=== PATIENT | male | born 1995 | race Hispanic/Latino ===

== ENCOUNTER 2023-10-21 10:02 | Emergency (ER) | payer OTHER, SELFPAY ==
[2023-10-21 10:19] VITALS: BP 156/91; PULSE 78; RESP 16; TEMP 37.3; O2SAT 100
--- NOTE | 2023-10-21 10:25 | ED.URI ---
HPI - URI/Sore Throat General Chief Complaint: Upper Respiratory Infection Stated Complaint: COVID + home test 10/20/2022,work note Time Seen by Provider: 10/21/23 10:27 Source: patient Mode of arrival: ambulatory Limitations: no limitations History of Present Illness HPI Narrative: 28-year-old male presents with complaint of nasal congestion, sore throat, cough, fatigue, chills for 3 days. Reports fever on 1st day but now resolved. Taking [id number] DayQuil NyQuil cold and flu to treat symptoms. Reports tested positive for COVID, here for work note. No chest pain or shortness breath. All systems reviewed and negative except as noted above. Related Data Home Medications Medication Instructions Recorded Confirmed No Home Medications 10/21/23 10/21/23 Allergies Allergy/AdvReac Type Severity Reaction Status Date / Time No Known Allergies Allergy Verified 10/21/23 10:22 Review of Systems Review of Systems: CONSTITUTIONAL: Denies fever, , fatigue,chills. Denies sweats. EYES: Denies visual changes, redness, or discharge. ENT: Reports rhinorrhea, congestion, sore throat, or otalgia. CARDIOVASCULAR: Denies chest pain, palpitations, or edema. RESPIRATORY: reports cough. Denies dyspnea. GASTROINTESTINAL: Denies abdominal pain, nausea, vomiting, or diarrhea. GENITOURINARY: Denies dysuria or hematuria. SKIN: Denies rash or itching. MUSCULOSKELETAL: Denies back pain, joint pain, or myalgia. NEUROLOGIC: Denies headache, numbness, or weakness. PSYCHIATRIC: Denies anxiety or depression. All other systems reviewed are negative, except as documented in HPI. PMFSH Comments At time of signature, agree with nursing past medical, surgical, social and family history. There is no relevant family history pertinent to the presenting complaint. Exam Narrative: GENERAL: This is a well-nourished, well-developed patient, ill-appearing but in no acute distress. HEAD: normocephalic, atraumatic. EYES: PERRL. Sclera clear/white. Vision is grossly intact. EARS: External ears normal, auditory canals clear and without drainage, TMs normal without perforation. Hearing grossly intact. NOSE: External nose normal with Clear nasal drainage, erythema to bilateral nares. THROAT: Mucous membranes moist, posterior pharynx clear. NECK: Neck supple, non-tender without lymphadenopathy, masses or thyromegaly. CARDIOVASCULAR: Regular rate and rhythm without murmurs, gallops, or rubs. RESPIRATORY: Clear to auscultation. Breath sounds equal bilaterally. No wheezes, rales, or rhonchi. SKIN: warm, Dry, intact with no suspicious lesions or rash, good texture and turgor. NEURO: awake, alert, and oriented to person, place and time. There were no obvious focal neurologic abnormalities. EXTREMITIES: No joint tenderness, effusion, or edema noted. Course Course Level of Care: Express Care Visit Vital Signs Vital signs: Vital Signs Temperature 37.3 C 10/21/23 10:19 Pulse Rate 78 10/21/23 10:19 Respiratory Rate 16 10/21/23 10:19 Blood Pressure 156/91 H 10/21/23 10:19 Pulse Oximetry 100 10/21/23 10:19 Oxygen Delivery Room Air 10/21/23 10:19 Temperature 37.3 C 10/21/23 10:19 Pulse Rate 78 10/21/23 10:19 Respiratory Rate 16 10/21/23 10:19 Blood Pressure 156/91 H 10/21/23 10:19 Pulse Oximetry 100 10/21/23 10:19 Oxygen Delivery Room Air 10/21/23 10:19 Reviewed MDM - URI/Sore Throat MDM Narrative Medical decision making narrative: Patient is aware of diagnosis, understands and agrees to treatment plan. Anticipatory guidance given. Patient agrees to follow-up as directed and is aware of reasons to seek care at the emergency department. Portions of this record may have been created with voice recognition software Differential Diagnosis Differential diagnosis: Likely other ( COVID-19) Discharge Plan Discharge Clinical Impression: COVID-19 Patient Disposition: Home, Self-Care
== END 2023-10-21 10:38 | disposition home or self-care (01) ==
PROVIDERS: Emergency Provider Nurse Practitioner Family
DX: U07.1 COVID-19 (principal); Z85.528 Personal history of other malignant neoplasm of kidney; Z90.5 Acquired absence of kidney
CPT/HCPCS: 87426; 99203; G0463

== ENCOUNTER 2023-12-08 10:29 | Emergency (ER) | payer OTHER, SELFPAY ==
[2023-12-08 10:44] VITALS: BP 131/76; PULSE 67; RESP 16; TEMP 36.5; O2SAT 99
--- NOTE | 2023-12-08 11:41 | ED.GENADULT ---
HPI - General Adult General Chief complaint: Extremity Injury, Upper Stated complaint: pain in R shoulder Time Seen by Provider: 12/08/23 11:37 Source: patient, RN notes reviewed and old records reviewed Mode of arrival: ambulatory Limitations: no limitations History of Present Illness HPI narrative: 28-year-old male presents to [facility] with complaint of right shoulder pain with limited range of motion since yesterday. Patient endorses that he has a very physically demanding job. The patient denies any known injury. Patient has attempted to treat at home with rest and Tylenol with some improvement. Patient denies any radiation of pain into to chest neck, or spine. Related Data Home Medications Medication Instructions Recorded Confirmed No Home Medications 10/21/23 12/08/23 Allergies Allergy/AdvReac Type Severity Reaction Status Date / Time No Known Allergies Allergy Verified 12/08/23 10:35 Review of Systems Review of Systems: All systems reviewed & are unremarkable except as noted in HPI and below Constitutional: Constitutional: Reports no additional constitutional complaints Eyes: Eyes: Reports no additional eye complaints ENT: Reports system reviewed and no additional complaints, except as documented Cardiovascular: Cardiovascular: Reports no additional cardiovascular complaints, Denies chest pain and Denies dyspnea Respiratory: Respiratory: Reports no additional respiratory complaints, Denies cough and Denies dyspnea Musculoskeletal: Musculoskeletal: Reports as per HPI, Denies back pain, Reports arthralgias (right shoulder), Reports limited range of motion, Denies neck pain, Denies numbness, Denies radiating pain into limb and Reports stiffness Neurologic: Reports system reviewed and no additional complaints, except as documented Psychiatric: Psychiatric: Reports no additional psychiatric complaints PMFSH Comments At the time of my signature, I reviewed and agree with the nursing past medical, surgical, social, and family history. There is no relevant family history pertinent to the patient complaint. Exam Const: General: cooperative, healthy appearing, comfortable, no acute distress, alert and well nourished Nutritional Appearance: well nourished Orientation/consciousness: patient oriented x3 Limitations: no limitations HENMT: Head: normal to inspection Ears: external ears normal Face/Nose/Sinus: Normal external nose present, Normal nares present, normal facial exam, No erythema and No edema Face and sinus: normal facial exam, no erythema and no edema Mouth: Yes Normal oral and palatal mucosa present Eyes: General: appearance normal, both eyes and all related structures Neck: Neck: normal visual inspection, full ROM and no meningeal signs Lymphatic: no lymphadenopathy noted and no lymphedema noted Chest: Chest palpation & inspection: normal inspection of the chest Resp: Effort & Inspection: normal respiratory effort and able to speak in complete sentences Auscultation: clear to auscultation bilaterally Cardio: Jugular venous distension: no JVD Rate: regular rate Rhythm: regular rhythm Peripheral pulses: Peripheral pulses 2+ throughout Back/Spine/Pelvis: Cervical Spine: cervical ROM normal, No cervical muscular tenderness and No Cervical spine tenderness Skin: General skin exam: normal color, no rashes or lesions noted and turgor normal Neuro: General: patient oriented x3, gait normal, moves all extremities and no meningeal signs Speech: normal speech Gait exam (Neuro): Normal gait present Extrem: General: capillary refill normal and normal exam except as noted Right upper extremity: normal capillary refill and shoulder/upper arm tenderness and abnormal ROM pain with active ROM; no crepitus and no deformity; abnormal to inspection, ROM limited, no cyanosis, no edema and joint enlargement noted Psych: Appearance: grossly normal and well kempt Course Course Emergency Course:
== END 2023-12-08 12:01 | disposition home or self-care (01) ==
PROVIDERS: Emergency Provider Nurse Practitioner Family
DX: M25.511 Pain in right shoulder (principal); Z85.528 Personal history of other malignant neoplasm of kidney; Z90.5 Acquired absence of kidney
CPT/HCPCS: 99212; G0463

== ENCOUNTER 2023-12-17 08:26 | Emergency (ER) | payer OTHER, SELFPAY ==
[2023-12-17 08:30] VITALS: BP 171/95; PULSE 104; RESP 16; TEMP 36.9; O2SAT 99
--- NOTE | 2023-12-17 08:57 | ED.NAVMDI ---
HPI - Nausea/Vomiting/Diarrhea General Chief complaint: Nausea/Vomiting/Diarrhea Stated complaint: fever, N/V Time Seen by Provider: 12/17/23 08:56 Source: patient Mode of arrival: ambulatory Limitations: no limitations History of Present Illness HPI Narrative: Priyank is a 28-year-old male patient presenting to the ER today with complaints fever, nausea, vomiting, and abdominal discomfort. He reports he had approximately 8-9 episodes of vomiting since yesterday and to him numerous to count diarrhea episodes. Is having some abdominal cramping to the mid abdomen. States his fever was as high as 101. He denies any URI symptoms. Related Data Allergies Allergy/AdvReac Type Severity Reaction Status Date / Time No Known Allergies Allergy Verified 12/17/23 09:33 Review of Systems Review of Systems: Pertinent positives per HPI. Patient denies any fever, chills, rash, headache, visual changes, dizziness, cough, runny nose, sore throat, shortness of breath, chest pain, palpitations, constipation, or any urinary issues. PMFSH Comments At the time of my signature, I reviewed and agree with the nursing past medical, surgical, social, and family history. There is no relevant family history pertinent to the patient complaint. Exam Narrative: General: Well-developed, well nourished, in no apparent distress Head: Normocephalic, atraumatic Eyes: Pupils equally round and reactive to light bilaterally, EOM intact, sclera and conjunctive clear, no discharge, lids normal Ears: TMs intact and clear, ear canals clear, no drainage, grossly hearing normal. Nose: Nares patent, no discharge, no inflammation, no sinus tenderness. Mouth: Oropharynx without lesions or masses, good dentition, MMM. Neck: Supple, trachea midline, no enlargement of anterior or posterior cervical nodes, no thyroid masses or goiter palpable. Cardio: Regular rate and rhythm, s1 and s2 normal, no murmur appreciated. Resp: Clear to auscultation bilaterally anteriorly and posteriorly, no rhonchi, rales, wheezing or rubs Abdomen: Soft, pliable, bowel sounds present all 4 quadrants, nondistended, no organomegaly, tenderness to palpation over the mid abdomen, no CVAT tenderness Course Course Emergency Course: Portions of this record may have been created with voice recognition software. Vital Signs Vital signs: Vital Signs Temperature 36.9 C 12/17/23 08:30 Pulse Rate 104 H 12/17/23 08:30 Respiratory Rate 16 12/17/23 08:30 Blood Pressure 171/95 H 12/17/23 08:30 Pulse Oximetry 99 12/17/23 08:30 Oxygen Delivery Room Air 12/17/23 08:30 Temperature 36.9 C 12/17/23 08:30 Pulse Rate 104 H 12/17/23 08:30 Respiratory Rate 16 12/17/23 08:30 Blood Pressure 171/95 H 12/17/23 08:30 Pulse Oximetry 99 12/17/23 08:30 Oxygen Delivery Room Air 12/17/23 08:30 Vital signs reviewed MDM - Nausea/Vomiting/Diarrhea MDM Narrative Medical decision making narrative: At the time of visit patient is resting comfortably on the exam table. Patient appears to be nontoxic. Labs: CBC shows white blood cell count of 9.7, H and H is 16.5 and 50.1, platelet count is a 169, chemistry shows sodium level 138, potassium of 3.4, chloride 105, carbon dioxide of 20, BUN is 16, creatinine 0.9, GFR greater than 60, glucose is 118, lipase is 45, liver function test within normal limits. Urinalysis shows dark yellow with clear urine with a specific gravity 1.039, 2+ protein, trace ketones, 2+ bili. COVID, influenza, and RSV are negative. Medications given: 1 L of normal saline and 4 mg of Zofran Plan: Patient reports his symptoms have improved after Zofran and 1 L of normal saline. I suspect patient has gastroenteritis. Prescription for Zofran was sent to the pharmacy. Work note was given. Supportive measures were discussed with the patient and they voiced understanding discharge instructions and agrees to treatment plan. Return precautions reviewed
[2023-12-17] MEDS: SODIUM CHLORIDE 0.9% IV 1,000 ML 999 ML IV CONT (09:38)
[2023-12-17] MEDS: ONDANSETRON INJ 4 MG/2 ML VIAL IV PUSH (09:38)
[2023-12-17 09:45] LABS: Basophils Percent Auto 0.4 % (0.2-1.2); Eosinophils Absolute Auto 0.1 K/mm3 (0-0.3); Eosinophils Percent Auto 0.5 % (0-4.4); Hematocrit 50.1 % (42.0-52.0); Hemoglobin 16.5 g/dL (14.0-18.0); Immature Granulocyte Absolute 0.05 K/mm3 (0.00-0.031); Immature Granulocyte Percent A 0.5 % (0-0.5); Lymphocytes Absolute Auto 1.63 K/mm3 (0.9-3.2); Lymphocytes Percent Auto 16.8 % (18.3-44.2); Mean Corpuscular HGB Conc 32.9 g/dl (32-36); Mean Corpuscular Hemoglobin 28.8 pg (26-34); Mean Corpuscular Volume 87.6 fl (80-100); Mean Platelet Volume 10.4 fl (7.4-10.4); Monocytes Absolute Auto 1.3 K/mm3 (0.1-0.6); Monocytes Percent Auto 13.1 % (2.6-8.5); Neutrophils Absolute Auto 6.7 K/mm3 (1.3-6.7); Neutrophils Percent Auto 68.7 % (45.5-73.1); Platelet Count Result 169 k/mm3 (150-375); Red Blood Count 5.72 M/mm3 (4.6-6.20); Red Cell Distribution Width 13.6 % (11.5-14.5); White Blood Count 9.7 K/mm3 (4.5-10.0)
[2023-12-17 09:56] LABS: Alanine Aminotransferase 34 U/L (6-50); Albumin Level 4.9 g/dL (3.5-5.1); Alkaline Phosphatase 77 U/L (38-126); Anion Gap 13 mmol/L (8-16); Aspartate Amino Transferase 35 U/L (17-59); Bilirubin,Total 0.5 mg/dL (0.2-1.3); Blood Urea Nitrogen 16 mg/dL (9-20); Calcium 9.4 mg/dL (8.4-10.2); Carbon Dioxide 20 mmol/L (22-30); Chloride 105 mmol/L (98-107); Estimated CRCL calculation 146 ml/min; Estimated Glomerular Filt Rate > 60; Glucose 118 mg/dL (65-110); Lipase 45 U/L (23-300); Potassium 3.4 mmol/L (3.4-5.0); Sodium 138 mmol/L (137-145)
[2023-12-17 09:58] LABS: Appearance Urine Clear (Clear); Bacteria Urine None Seen /hpf; Bilirubin Urine 2+ (Negative); Blood Urine Negative (Negative); Color Urine Dark Yellow (Yellow); Glucose Urine UA Negative (Negative); Ketones Urine Trace mg/dL (Negative); Leukocyte Esterase Ur Negative LEU/UL (Negative); Mucus Urine Present /lpf; Nitrate Urine Negative (Negative); Non Pathogenic Casts >20; Protein Urine 2+ mg/dL (Negative); RBC Urine 0-2 /hpf (0-2); Squamous Epithelial Cell Urine Moderate /hpf (Few); WBC Urine 0-5 /hpf (0-3); White Blood Cell Casts Urine Present /lpf
[2023-12-17 09:59] LABS: Add Urine Microscopic? YES; Specific Grav Ur 1.039 (1.001-1.035)
[2023-12-17 10:26] LABS: Influenza A QL RT-PCR Negative (Negative); Influenza B QL RT-PCR Negative (Negative); RSV RNA, RT-PCR Negative (Negative); SARS-CoV-2 RNA PCR Negative (Negative)
[2023-12-17 11:25] VITALS: BP 152/84; PULSE 88; RESP 18; TEMP 36.6; O2SAT 99
== END 2023-12-17 11:26 | disposition home or self-care (01) ==
PROVIDERS: Emergency Medicine; Emergency Provider Nurse Practitioner Family
DX: K52.9 Noninfective gastroenteritis and colitis, unspecified (principal); Z20.822 Contact with and (suspected) exposure to COVID-19
CPT/HCPCS: 36415; 80053; 83690; 85025; 87637; 96361; 96374; 99284; J2405; J7030

== ENCOUNTER 2024-07-09 18:06 | Emergency (ER) | payer OTHER, SELFPAY ==
[2024-07-09 18:16] VITALS: BP 146/98; PULSE 89; RESP 16; TEMP 37.1; O2SAT 99
--- NOTE | 2024-07-09 18:25 | ED.LOWEXIN ---
HPI - Extremity Injury (Lower) General Chief Complaint: Extremity Injury, Lower Stated Complaint: left big toe injury Time Seen by Provider: 07/09/24 18:25 Source: patient, RN notes reviewed and old records reviewed Mode of arrival: ambulatory Limitations: no limitations History of Present Illness HPI Narrative: Patient presents with complaints of left great toe pain. He reports that just prior to arrival a piece of metal partially avulsed the toenail, then another piece of metal hit him and put the toenail back into place. He denies other injury and trauma. Voices no other concerns or complaints at this time. The toenail appears intact. He has not taken anything for pain Related Data Home Medications Medication Instructions Recorded Confirmed No Home Medications 07/09/24 07/09/24 Allergies Allergy/AdvReac Type Severity Reaction Status Date / Time No Known Allergies Allergy Verified 12/17/23 09:33 Review of Systems Review of Systems: All systems reviewed & are unremarkable except as noted in HPI and below Constitutional: Constitutional: Reports no additional constitutional complaints ENT: Reports system reviewed and no additional complaints, except as documented Cardiovascular: Cardiovascular: Reports no additional cardiovascular complaints Respiratory: Respiratory: Reports no additional respiratory complaints Gastrointestinal: Gastrointestinal: Reports no additional gastrointestinal complaints Musculoskeletal: Musculoskeletal: Reports no additional musculoskeletal complaints and Reports other (Left great toe pain) PMFSH Comments At the time of my signature, I reviewed and agree with the nursing past medical, surgical, social, and family history. There is no relevant family history pertinent to the patient complaint. Exam Const: General: cooperative, no acute distress, alert and awake Orientation/consciousness: oriented to person, oriented to place and oriented to time HENMT: Head: normal to inspection Resp: Effort & Inspection: normal respiratory effort and able to speak in complete sentences Auscultation: clear to auscultation bilaterally, no crackles, no rales, no rhonchi and no wheezes Cardio: Palpation: normal PMI Rate: regular rate Rhythm: regular rhythm Heart sounds: S1 normal heart sound present and S2 normal heart sound present Neuro: General: oriented to person, oriented to place and oriented to time Cranial nerves: Yes CN's II-XII intact bilaterally Extrem: Left lower extremity: foot Details: tenderness (Nailbed left great toe) Psych: Appearance: grossly normal Thought process: Normal thought process present Insight: Good insight present (Psych) Judgement: Good judgement present (Psych) Course Course Level of Care: Express Care Visit Vital Signs Vital signs: Vital Signs Temperature 98.7 F 07/09/24 18:16 Pulse Rate 89 07/09/24 18:16 Respiratory Rate 16 07/09/24 18:16 Blood Pressure 146/98 H 07/09/24 18:16 Pulse Oximetry 99 07/09/24 18:16 Oxygen Delivery Room Air 07/09/24 18:16 Temperature 98.7 F 07/09/24 18:16 Pulse Rate 89 07/09/24 18:16 Respiratory Rate 16 07/09/24 18:16 Blood Pressure 146/98 H 07/09/24 18:16 Pulse Oximetry 99 07/09/24 18:16 Oxygen Delivery Room Air 07/09/24 18:16 Reviewed MDM - Extremity Injury (Lower) MDM Narrative Medical decision making narrative: Left great toe tender, no deformity. No other injuries. Patient advised to take Tylenol and/or ibuprofen per package instructions as needed for pain. RICE therapy. Elevated blood pressure noted, patient advised to discuss with primary care provider. Emergency department for new or worse symptoms. Discharge instructions reviewed with patient, as well as provided in writing per nursing staff. The instructions also include specific and strict return/GO TO THE ER as well as f/u information. All questions have been answered, and the patient deny any furth
== END 2024-07-09 18:39 | disposition home or self-care (01) ==
PROVIDERS: Emergency Provider Nurse Practitioner Family
DX: M79.675 Pain in left toe(s) (principal); R03.0 Elevated blood-pressure reading, without diagnosis of hypertension
CPT/HCPCS: 99212; G0463

== ENCOUNTER 2025-01-15 12:22 | Emergency (ER) | payer OTHER, SELFPAY ==
--- NOTE | 2025-01-15 12:23 | ED.RECABL ---
HPI - Recheck/Abnormal Lab/Rx General Chief Complaint: Unspecified Stated Complaint: work note Time Seen by Provider: 01/15/25 12:22 Source: patient Mode of arrival: ambulatory Limitations: no limitations History of Present Illness HPI narrative: Priyank is a 29-year-old male patient presenting to the clinic today requesting a work note. He reports he tested positive for COVID last week and retested today was negative. States he still has a cough but no other symptoms. Is needing a work note to return to work. Denies any other concerns. Blood pressure was elevated in the clinic. He does take anti hypertension medications. Related Data Home Medications ?Medication ?Instructions ?Recorded ?Confirmed ?Last Taken ?Type No Home Medications 07/09/24 01/15/25 Unknown History Allergies Allergy/AdvReac Type Severity Reaction Status Date / Time No Known Allergies Allergy Verified 01/15/25 12:23 Review of Systems Review of Systems: Pertinent positives per HPI. Patient denies any fever, chills, rash, headache, visual changes, dizziness, cough, runny nose, sore throat, shortness of breath, chest pain, palpitations, nausea, vomiting, diarrhea, constipation, abdominal pain, or any urinary issues. PMFSH Comments At the time of my signature, I reviewed and agree with the nursing past medical, surgical, social, and family history. There is no relevant family history pertinent to the patient complaint. Exam Narrative: General: Well-developed, obese, in no apparent distress Head: Normocephalic, atraumatic Eyes: Pupils equally round and reactive to light bilaterally, EOM intact, sclera and conjunctive clear, no discharge, lids normal Ears: TMs intact and clear, ear canals clear, no drainage, grossly hearing normal. Nose: Nares patent, no discharge, no inflammation, no sinus tenderness. Mouth: Oropharynx without lesions or masses, good dentition, MMM. Neck: Supple, trachea midline, no enlargement of anterior or posterior cervical nodes, no thyroid masses or goiter palpable. Cardio: Regular rate and rhythm, s1 and s2 normal, no murmur appreciated. Resp: Clear to auscultation bilaterally anteriorly and posteriorly, no rhonchi, rales, wheezing or rubs Course Course Emergency Course: Portions of this record may have been created with voice recognition software. Level of Care: Express Care Visit Vital Signs Vital signs: Vital Signs Temperature 37.0 C 01/15/25 12:28 Pulse Rate 92 01/15/25 12:28 Respiratory Rate 20 01/15/25 12:28 Blood Pressure 173/104 H 01/15/25 12:28 Pulse Oximetry 99 01/15/25 12:28 Oxygen Delivery Room Air 01/15/25 12:28 Temperature 37.0 C 01/15/25 12:28 Pulse Rate 92 01/15/25 12:28 Respiratory Rate 20 01/15/25 12:28 Blood Pressure 173/104 H 01/15/25 12:28 Pulse Oximetry 99 01/15/25 12:28 Oxygen Delivery Room Air 01/15/25 12:28 Vital signs reviewed MDM - Recheck/Abnormal Lab/Rx MDM Narrative Medical decision making narrative: At the time of visit patient is resting comfortably on the exam table. Patient appears to be nontoxic. Plan: I suspect patient has post viral cough syndrome. Patient also has hypertension. Will give work note to return tomorrow. Supportive measures were discussed with the patient and they voiced understanding discharge instructions and agrees to treatment plan. Return precautions reviewed Differential Diagnosis Differential diagnosis: Likely other (Post viral cough, encounter for well check, hypertension) Discharge Plan Discharge Clinical Impression: Post-viral cough syndrome Hypertension Qualifiers: Hypertension type: unspecified Qualified Code(s): I10 - Essential (primary) hypertension Patient Disposition: Home Condition: Stable Instructions: Antibiotic Form, Acute Cough (ED), Chronic Hypertension (ED) Additional Instructions: May return to work on January 16 2025 Take prescription medications only as prescribed Increase fluids and stay well hydrated Tylenol/motrin for pain/fever Flonase and OTC antihistamines as directed Vicks vapor rub to open sinuses Sinus rinses for congestion Cepacol spray, cough drops, throat lozenges, warm tea with honey/lemon, gargle salt water to soothe throat BRAT diet for diarrhea Clear liquids x 24 hours then advance as tolerated for nausea/vomiting Go to the ED if you develop a worsening in your condition- high fever not controlled by Tylenol or Motrin, dehydration, weakness, lethargy, shortness of breath, or chest pain. Follow up with your PCP in 3-5 days if symptoms persist. You have an elevated blood pressure in the clinic today and I recommend follow-up with primary care physician to have this reevaluated within the next week if symptoms persist. [place] [employer] guidelines state that normal blood pressure is 120/80 or less. Anything over 120/80 is considered elevated and should be monitored. You may need to decrease you salt intake and eat a heart healthy diet to help lower you blood pressure, other treatments would include decreasing stress, weight loss, stop caffeine, and quit smoking. Your primary care provider can determine whether you need to start antihypertensive medications. Untreated high blood pressure can cause dizziness, headaches, visual changes, blindness, kidney failure, stroke, heart attack, and male impotence. Patient Language: Mohawk Prescriptions: No Action No Home Medications Follow-up/Referrals: PHYSICIAN NOT ON STAFF,NONSTAFF [Primary Care Provider] - Stand Alone Forms: Work/School Release IP Time of Disposition: 12:34 Quality NIHSS Nursing Documentation ED NIHSS nursing documentation: reviewed/agree
[2025-01-15 12:28] VITALS: BP 173/104; PULSE 92; RESP 20; TEMP 37; O2SAT 99
== END 2025-01-15 12:40 | disposition home or self-care (01) ==
LOC: EXPCOLL 12:26
PROVIDERS: Emergency Provider Nurse Practitioner Family
DX: R05.8 Other specified cough (principal); I10 Essential (primary) hypertension
CPT/HCPCS: 99211; G0463

== ENCOUNTER 2025-03-01 13:14 | Emergency (ER) | payer OTHER, SELFPAY ==
--- NOTE | ~2025-03-01 | XR_ITS ---
XR shoulder RT min 2V 03/01/2025 13:42 INDICATION: Right shoulder pain PROCEDURE: 4 views right shoulder COMPARISON: No prior studies for comparison. FINDINGS: Fracture, dislocation or subluxation is not identified. No prior studies for comparison. Th e soft tissues appear within normal limits. No foreign bodies are identified. IMPRESSION: 1: NO ACUTE BONE OR JOINT ABNORMALITY IDENTIFIED. Reviewed, dictated and finalized at location A.
--- NOTE | 2025-03-01 13:16 | ED_ITS ---
HPI - Extremity Injury (Upper) General Chief Complaint: Extremity Injury, Upper Stated Complaint: right shoulder pain Time Seen by Provider: 03/01/25 13:16 Source: patient Mode of arrival: ambulatory Limitations: no limitations History of Present Illness HPI narrative: Barber is a 29-year-old male patient presenting to the clinic today with complaints of chronic right shoulder pain x2 years. He reports he initially injured his right shoulder 2 years ago while at work. 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 Was seen 2 years ago for this and he was diagnosed with a possible muscle tear per patient. Is reporting pain to the anterior and lateral shoulder. States the pain worsened yesterday but has been pretty bad over the last week. Is unable to push the score boards with his right arm due to pain. Feels as though his shoulder may be swollen. Pain with raising is arm above his head. Has been taking ibuprofen without relief. Related Data Home Medications ?Medication ?Instructions ?Recorded ?Confirmed ?Last Taken ?Type hydrochlorothiazide 25 mg tablet mg 01/15/25 Unknown History Allergies Allergy/AdvReac Type Severity Reaction Status Date / Time No Known Allergies Allergy Verified 03/01/25 13:30 Review of Systems Review of Systems: Pertinent positives per HPI. Patient denies any fever, chills, rash, headache, visual changes, dizziness, cough, runny nose, sore throat, shortness of breath, chest pain, palpitations, nausea, vomiting, diarrhea, constipation, abdominal pain, or any urinary issues. PMFSH Comments At the time of my signature, I reviewed and agree with the nursing past medical, surgical, social, and family history. There is no relevant family history pertinent to the patient complaint. Exam Narrative: General: Well-developed, well nourished, in no apparent distress Head: Normocephalic, atraumatic. Cardio: Regular rate and rhythm, s1 and s2 normal, no murmur appreciated. Resp: Clear to auscultation bilaterally, no rhonchi, rales, wheezing or rubs. Musculoskeletal: No deformity, tender to palpation over the anterior and lateral right shoulder, pain with empty can and full can testing but is able to resist, negative drop-arm test, positive Cannon and cross-arm test, limited range of motion of the right shoulder due to pain, muscle strength strong and equal, peripheral pulse strong, no edema, no cyanosis, normal gait and station Course Course Emergency Course: Portions of this record may have been created with voice recognition software. Level of Care: Express Care Visit Vital Signs Vital signs: Vital Signs Temperature 36.5 C 03/01/25 13:23 Pulse Rate 91 03/01/25 13:23 Respiratory Rate 18 03/01/25 13:23 Blood Pressure 137/79 03/01/25 13:23 Pulse Oximetry 98 03/01/25 13:23 Oxygen Delivery Room Air 03/01/25 13:23 Temperature 36.5 C 03/01/25 13:23 Pulse Rate 91 03/01/25 13:23 Respiratory Rate 18 03/01/25 13:23 Blood Pressure 137/79 03/01/25 13:23 Pulse Oximetry 98 03/01/25 13:23 Oxygen Delivery Room Air 03/01/25 13:23 Vital signs reviewed MDM - Extremity Injury (Upper) MDM Narrative Medical decision making narrative: At the time of visit patient is resting comfortably on the exam table. Patient appears to be nontoxic. Diagnostics: X-ray of the right shoulder was performed and is negative for any fracture or malalignment Plan: I suspect patient has right shoulder rotator cuff tendinitis. Prescription for Medrol Dosepak and cyclobenzaprine was sent to the pharmacy. Arm sling and work note was given. Supportive measures were discussed with the patient and they voiced understanding discharge instructions and agrees to treatment plan. Return precautions reviewed Differential Diagnosis Differential diagnosis: Likely dislocation of shoulder and other (Shoulder sp rain, rotator cuff tendinitis, rotator cuff tear, AC joint separation, osteoarthritis) Imaging Data Radiologist's impression: ITS Impressions Shoulder X-Ray 03/01/25 13:45 IMPRESSION: 1: NO ACUTE BONE OR JOINT ABNORMALITY IDENTIFIED. Discharge Plan Discharge Clinical Impression: Right shoulder tendonitis Patient Disposition: Home Condition: Stable Instructions: Antibiotic Form, Tendinitis (ED), Shoulder Pain (ED) Additional Instructions: X-rays negative for any acute fracture or malalignment the right shoulder Take Medrol Dosepak and cyclobenzaprine as directed Rest, ice, elevate, wear arm sling as directed Tylenol/motrin for pain as discussed. Be mindful of sedation precautions given to you if taking a muscle relaxer. May use heat or ice to the affected area May use blue emu, lidocaine patches, or asper cream to affected area- do not apply heat or ice directly over cream- can cause burn. Follow up with your PCP if symptoms persist more than 1 week. Patient Language: Tanzanian Prescriptions: New methylprednisolone [Medrol (Binu)] 4 mg tablets,dose pack See Rx Instructions PO .COMPLEX Qty: 21 0RF Rx Instructions: orally per package directions cyclobenzaprine 10 mg tablet 10 mg PO Q8H PRN (Reason: muscle spasm) 7 Days Qty: 21 0RF No Action hydrochlorothiazide 25 mg tablet Follow-up/Referrals: Sonu Putnam MD [Physician] - 2 Days (Right shoulder tendinitis-chronic shoulder pain) UNKNOWN,DOCTOR [Non-Staff] - Stand Alone Forms: Work/School Release IP Time of Disposition: 13:55 Quality NIHSS Nursing Documentation ED NIHSS nursing documentation: reviewed/agree
[2025-03-01 13:23] VITALS: BP 137/79; PULSE 91; RESP 18; TEMP 36.5; O2SAT 98
== END 2025-03-01 14:09 | disposition home or self-care (01) ==
PROVIDERS: Emergency Provider Nurse Practitioner Family
DX: M75.81 Other shoulder lesions, right shoulder (principal); I10 Essential (primary) hypertension; Z87.891 Personal history of nicotine dependence; Z85.528 Personal history of other malignant neoplasm of kidney; Z90.5 Acquired absence of kidney; Z86.16 Personal history of COVID-19
CPT/HCPCS: 73030; 99213; A4565; G0463

== ENCOUNTER 2025-07-10 15:46 | Emergency (ER) | payer OTHER, SELFPAY ==
[2025-07-10 15:59] VITALS: BP 149/78; PULSE 83; RESP 16; TEMP 36.8; O2SAT 98
--- NOTE | 2025-07-10 16:00 | ED.GENADULT ---
HPI - General Adult General Chief complaint: Upper Respiratory Infection Stated complaint: Needs Covid test to return to work Time Seen by Provider: 07/10/25 16:07 Source: patient, RN notes reviewed and old records reviewed Mode of arrival: ambulatory Limitations: no limitations History of Present Illness HPI narrative: 29-year-old male presents to the [facility] requesting a COVID test, known exposure last week. Thursday had a headache and body aches. Denies fevers. Denies cough. No other symptoms. Patient reports occasional headache. Has been taken fqzn-[id number] products with some relief. Requesting a work note to stay called in sick today Onset (ago): day(s) (3) Related Data Home Medications ?Medication ?Instructions ?Recorded ?Confirmed ?Last Taken ?Type losartan 100 tablet 07/10/25 Unknown History mg-hydrochlorothiazide 25 mg tablet Allergies Allergy/AdvReac Type Severity Reaction Status Date / Time No Known Allergies Allergy Verified 07/10/25 16:05 Review of Systems Review of Systems: All systems reviewed & are unremarkable except as noted in HPI and below Constitutional: Constitutional: Reports as per HPI, Reports body ache(s) and Reports headache(s) ENT: Reports system reviewed and no additional complaints, except as documented Cardiovascular: Cardiovascular: Reports no additional cardiovascular complaints, Denies chest pain and Denies dyspnea Respiratory: Respiratory: Reports no additional respiratory complaints, Denies chest congestion, Denies cough and Denies dyspnea Musculoskeletal: Musculoskeletal: Reports no additional musculoskeletal complaints Integumentary/Breasts: Skin/Breast: Reports system reviewed and no additional complaints, except as docu PMFSH Comments At the time of my signature, I reviewed and agree with the nursing past medical, surgical, social, and family history. There is no relevant family history pertinent to the patient complaint. Exam Const: General: cooperative, healthy appearing, comfortable, no acute distress, well developed, alert and well nourished Nutritional Appearance: well nourished Orientation/consciousness: patient oriented x3 Limitations: no limitations HENMT: Head: normal to inspection Ears: hearing grossly normal bilaterally, external ears normal, TM's normal bilaterally, EAC's normal, mastoids normal and no periauricular adenopathy Face and sinus: normal facial exam and sinuses nontender Mouth: Yes Normal oral and palatal mucosa present, Yes lip normal, Yes tongue normal and Yes moist mucous membranes Throat: posterior oropharynx normal, uvula midline and no uvular edema Eyes: General: appearance normal, both eyes and all related structures Alignment and Position: alignment normal Neck: Neck: normal visual inspection, full ROM, no lymphadenopathy and no meningeal signs Chest: Chest palpation & inspection: normal inspection of the chest Resp: Effort & Inspection: normal respiratory effort and able to speak in complete sentences Auscultation: clear to auscultation bilaterally, no crackles, no rales, no rhonchi and no wheezes Cardio: Rate: regular rate Skin: General skin exam: normal color and no rashes or lesions noted Neuro: General: patient oriented x3, gait normal, moves all extremities and no meningeal signs Cognition (Neuro): normal cognition Speech: normal speech Gait exam (Neuro): Normal gait present Extrem: General: normal to inspection, full ROM, capillary refill normal and normal gait Psych: Appearance: grossly normal and well kempt Mental Status: mental status grossly normal Speech and movement: Normal speech and movement present and Clear speech present Affect: normal affect Attitude: cooperative Course Course Level of Care: Express Care Visit Vital Signs Vital signs: Vital Signs Temperature 98.2 F 07/10/25 15:59 Pulse Rate 83 07/10/25 15:59 Respiratory Rate 16 07/10/25 15:59 Blood Pressure 149/78 H 07/10/25 15:59 Pulse Oximetry 98 07/10/25 15:59 Oxygen Delivery Room Air 07/10/25 15:59 Temperature 98.2 F 07/10/25 15:59 Pulse Rate 83 07/10/25 15:59 Respiratory Rate 16 07/10/25 15:59 Blood Pressure 149/78 H 07/10/25 15:59 Pulse Oximetry 98 07/10/25 15:59 Oxygen Delivery Room Air 07/10/25 15:59 Reviewed Medical Decision Making MDM Narrative Medical decision making narrative: Patient sitting in exam room. Patient is nontoxic, vitals stable. Patient reported on Thursday, 3 days ago did not feel well. Requesting a COVID test due to known exposure at work. No acute findings noted on exam. COVID and flu test are negative. Patient is appropriate for outpatient treatment with close follow-up Discharge instructions reviewed with patient, as well as provided in writing per nursing staff. The instructions also include specific and strict return/GO TO THE ER as well as f/u information. All questions have been answered, and the patient deny any further questions with discharge and discharge plan. Some parts of this dictation were generated by voice recognition software and may contain typographical and/or grammatical inaccuracies. Differential Diagnosis Differential Diagnosis: Viral syndrome, URI, flu, COVID Medical Records Medical records reviewed: Yes I reviewed the external patient's medical records. Vital Signs Vital Signs: Vital Signs Temperature 98.2 F 07/10/25 15:59 Pulse Rate 83 07/10/25 15:59 Respiratory Rate 16 07/10/25 15:59 Blood Pressure 149/78 H 07/10/25 15:59 Pulse Oximetry 98 07/10/25 15:59 Oxygen Delivery Room Air 07/10/25 15:59 Temperature 98.2 F 07/10/25 15:59 Pulse Rate 83 07/10/25 15:59 Respiratory Rate 16 07/10/25 15:59 Blood Pressure 149/78 H 07/10/25 15:59 Pulse Oximetry 98 07/10/25 15:59 Oxygen Delivery Room Air 07/10/25 15:59 Reviewed Lab Data Lab results reviewed: Yes I reviewed the patient's lab results. Labs: Lab Results 07/10/25 Range/Units 16:17 POC Influenza A Ag Negative (Negative) POC Influenza B Ag Negative (Negative) POC SARS CoV-2 Ag Negative (Negative) Reviewed Critical Care Time Critical Care Time Critical Care Time: No Discharge Plan Discharge Clinical Impression: Viral infection Patient Disposition: Home Condition: Stable Instructions: Viral Syndrome (ED) Additional Instructions: Your rapid COVID test were negative Your rapid flu test was negative It is very important to treat your symptoms. Drink plenty of water, Gatorade, Pedialyte, ice pops or Jell-O. -Alternate Tylenol and Motrin per package directions for fever or pain. You can alternate every 4 hours -Antihistamine medication such as Zyrtec/Claritin/Sadia during the day can help improve symptoms. -doing daily nasal irrigations can help relieve pressure your sinuses. Things like a Neti pot -Use Flonase twice a day for 5 days then daily to help reduce the inflammation and dry up your sinuses. -You can also use Mucinex. Be sure to drink plenty of water with this medication at least 8 ounces with every dose and it is important to drink 8 to 10 glasses of water per day. Water is a natural decongestant -Eat and drink things that are easy to swallow, like tea or soup, or popsicles. -Oral rinses such as: Salt water gargles and/or may use topical anesthetic (eg. Chloraseptic spray) or lozenges to relieve dryness or throat pain). -Frequent hand washing or hand mission support specialist is one of the best ways to prevent spread of infection. -Using a vaporizer or humidifier at night will also help thin secretions and help with coughing up phlegm. -Follow up with primary care provider in 7-10 days if condition is not improving - For new or worsening symptoms go directly to the nearest ER Patient Language: Guinean Prescriptions: No Action losartan-hydrochlorothiazide 100-25 mg tablet Follow-up/Referrals: UNKNOWN,DOCTOR [Primary Care Provider] Stand Alone Forms: Work/School Release IP Time of Disposition: 16:19
[2025-07-10 16:19] LABS: EDCOVIDSCREEN Negative (Negative); EDINFLUASCREEN Negative (Negative); EDINFLUBSCREEN Negative (Negative)
== END 2025-07-10 16:27 | disposition home or self-care (01) ==
PROVIDERS: Emergency Provider Nurse Practitioner
DX: B34.9 Viral infection, unspecified (principal); Z20.822 Contact with and (suspected) exposure to COVID-19; I10 Essential (primary) hypertension; Z85.528 Personal history of other malignant neoplasm of kidney; Z90.5 Acquired absence of kidney; Z86.16 Personal history of COVID-19
CPT/HCPCS: 87426; 87804; 99212; G0463

== ENCOUNTER 2025-09-06 17:47 | Emergency (ER) | payer OTHER, SELFPAY ==
[2025-09-06 17:57] VITALS: BP 160/93; PULSE 86; RESP 18; TEMP 36.9; O2SAT 98
--- NOTE | 2025-09-06 18:15 | ED.URI ---
HPI - URI/Sore Throat General Chief Complaint: Upper Respiratory Infection Stated Complaint: flu symptoms Time Seen by Provider: 09/06/25 18:15 Source: patient Mode of arrival: ambulatory Limitations: no limitations History of Present Illness HPI Narrative: 29-year-old male presents with complaint of nasal congestion, sore throat, fatigue, coughing for 2 days. Patient states multiple family members and his house are sick. No chest pain or shortness breath. Not taking any uopq-pkh-ndauglb medications to treat symptoms. Called into work yesterday and today. All systems reviewed and negative except as noted above. Related Data Home Medications ?Medication ?Instructions ?Recorded ?Confirmed ?Last Taken ?Type losartan 100 tablet 07/10/25 Unknown History mg-hydrochlorothiazide 25 mg tablet Allergies Allergy/AdvReac Type Severity Reaction Status Date / Time No Known Allergies Allergy Verified 09/06/25 18:05 [facility] Comments At time of signature, agree with nursing past medical, surgical, social and family history. There is no relevant family history pertinent to the presenting complaint. Exam Narrative: GENERAL: This is a well-nourished, well-developed patient, in no apparent distress. HEAD: normocephalic, atraumatic. EYES: PERRL. Sclera clear/white. Vision is grossly intact. EARS: External ears normal, auditory canals clear and without drainage, TMs normal without perforation. Hearing grossly intact. NOSE: External nose normal with congestion, clear nasal drainage THROAT: Mucous membranes moist, erythematous with mild swelling. No exudates. NECK: Neck supple, non-tender without lymphadenopathy, masses or thyromegaly. CARDIOVASCULAR: Regular rate and rhythm without murmurs, gallops, or rubs. RESPIRATORY: Clear to auscultation. Breath sounds equal bilaterally. No wheezes, rales, or rhonchi. SKIN: warm, Dry, intact with no suspicious lesions or rash, good texture and turgor. NEURO: awake, alert, and oriented to person, place and time. There were no obvious focal neurologic abnormalities. EXTREMITIES: No joint tenderness, effusion, or edema noted. Course Course Level of Care: Express Care Visit Vital Signs Vital signs: Vital Signs Temperature 36.9 C 09/06/25 17:57 Pulse Rate 86 09/06/25 17:57 Respiratory Rate 18 09/06/25 17:57 Blood Pressure 160/93 H 09/06/25 17:57 Pulse Oximetry 98 09/06/25 17:57 Oxygen Delivery Room Air 09/06/25 17:57 Temperature 36.9 C 09/06/25 17:57 Pulse Rate 86 09/06/25 17:57 Respiratory Rate 18 09/06/25 17:57 Blood Pressure 160/93 H 09/06/25 17:57 Pulse Oximetry 98 09/06/25 17:57 Oxygen Delivery Room Air 09/06/25 17:57 Reviewed MDM MDM Narrative Medical decision making narrative: A day COVID, influenza and strep. Recommend lpux-obk-etqqsku medications to treat viral symptoms. Patient is well-appearing, nontoxic. Differential Diagnosis Differential Diagnosis: Differential diagnostic considerations for upper respiratory infection include upper respiratory infection, croup, otitis media, sinusitis, viral infection, bronchitis, influenza, pharyngitis, strep, uvulitis.? Lab Data Labs: Lab Results 09/06/25 Range/Units 17:54 POC Influenza A Ag Negative (Negative) POC Influenza B Ag Negative (Negative) POC SARS CoV-2 Ag Negative (Negative) Discharge Plan Discharge Clinical Impression: Viral upper respiratory tract infection with cough Patient Disposition: Home Condition: Stable Instructions: Upper Respiratory Infection (ED) Additional Instructions: Your COVID, influenza and strep test were negative today. Your symptoms are viral and may last 10-14 days. Purchase nhij-vab-zxjizou pseudoephedrine and take as directed on packaging. This medication is found by the pharmacist. Purchase fpyb-vuz-ptrjabl Mucinex DM and take as directed on packaging. Drink at least 64 oz water a day. See your doctor if symptoms are not improving. Patient Language: [place] Verde[place] Prescriptions: No Action losartan-hydrochlorothiazide 100-25 mg tablet Follow-up/Referrals: Dasha,Humberto [Other] Stand Alone Forms: Work/School Release IP Time of Disposition: 18:31
[2025-09-06 18:17] LABS: EDCOVIDSCREEN Negative (Negative); EDINFLUASCREEN Negative (Negative); EDINFLUBSCREEN Negative (Negative)
[2025-09-06 18:34] LABS: EDSTREPNEGPOS1 Negative (Negative)
== END 2025-09-06 18:36 | disposition home or self-care (01) ==
PROVIDERS: Emergency Provider Nurse Practitioner Family
DX: J02.0 Streptococcal pharyngitis (principal); R05.9 Cough, unspecified; Z20.822 Contact with and (suspected) exposure to COVID-19; I10 Essential (primary) hypertension; Z85.528 Personal history of other malignant neoplasm of kidney; Z90.5 Acquired absence of kidney
CPT/HCPCS: 87081; 87426; 87804; 87880; 99213; G0463